=== PATIENT | female | born 1955 | race American Indian/Alaskan Native ===

== ENCOUNTER 2020-10-24 17:49 | Emergency (ER) | payer MEDICARE ==
[2020-10-24] MEDS ORDERED: ACETAMINOPHEN 325 MG TAB PO ONE (19:01)
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
--- NOTE | 2020-10-24 19:53 | XRay Report ---
CHEST 2 VIEWS INDICATION / CLINICAL INFORMATION: Right anterior chest pain. COMPARISON: None available. FINDINGS: SUPPORT DEVICES: None. HEART / MEDIASTINUM: There is mild cardiomegaly with a left ventricular configuration. Pulmonary vasc ulature is normal. The aorta is mildly tortuous without aneurysm. LUNGS / PLEURA: No significant pulmonary or pleural abnormality. No pneumothorax. ADDITIONAL FINDINGS: There are surgical changes in the upper abdomen on the left. There is also a viridiana or cholecystectomy. IMPRESSION: No acute findings. Signer Name: Ramin Oreilly MD Signed: 10/24/2020 7:48 PM Workstation Name: [id number]
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
[2020-10-24 20:07] VITALS: BP 109/61
== END 2020-10-24 21:11 | disposition home or self-care (01) ==
LOC: ED 17:49
DX: S29.011A Strain of muscle and tendon of front wall of thorax, initial encounter (principal); S80.02XA Contusion of left knee, initial encounter; I10 Essential (primary) hypertension; M19.90 Unspecified osteoarthritis, unspecified site; F17.200 Nicotine dependence, unspecified, uncomplicated; Z98.890 Other specified postprocedural states; V43.52XA Car driver injured in collision with other type car in traffic accident, initial encounter; Y93.89 Activity, other specified; Y92.488 Other paved roadways as the place of occurrence of the external cause; Y99.8 Other external cause status
CPT/HCPCS: 71046; 99283